=== PATIENT | male | born 1970 | race Caucasian/White ===

== ENCOUNTER 2018-01-13 20:18 | Emergency (ER) | payer OTHER ==
[2018-01-13 20:36] VITALS: BP 151/96
[2018-01-13] MEDS ORDERED: Lidocaine 1%* 5 ML VIAL INJ ONE (20:53)
[2018-01-13] MEDS ORDERED: Clindamycin CAP* 150 MG PO ONE ×2 (21:12→21:13)
--- NOTE | 2018-01-13 21:15 | UC ---
Skin Complaint HPI - HPI Summary HPI Summary: Patient to the urgent care today with chief complaint history of MRSA. Has abscess on his left thigh which is painful. No streaking no fevers. Very tender to touch - History of Current Complaint Chief Complaint: UCSkin Time Seen by Provider: 01/13/18 20:44 Stated Complaint: LEFT LEG SKIN COMPLAINT Hx Obtained From: Patient Onset/Duration: Sudden Onset - Mom, Lasting Days - 4 Timing: Constant Pain Intensity: 8 Pain Scale Used: 0-10 Numeric Location: Discrete - anterior left thigh Character: Pain, Redness, Raised Aggravating Factor(s): Nothing Associated Signs & Symptoms: Positive: Tenderness - Allergy/Home Medications Allergies/Adverse Reactions: Allergies Allergy/AdvReac Type Severity Reaction Status Date / Time No Known Allergies Allergy Verified 01/13/18 20:29 Review of Systems Constitutional: Negative Skin: Other - abscess left anterior thigh 10cm diameter erythema, 5 mm tender raised soft center Eyes: Negative ENT: Negative Respiratory: Negative Cardiovascular: Negative Gastrointestinal: Negative Genitourinary: Negative Motor: Negative Neurovascular: Negative Musculoskeletal: Negative Neurological: Negative Psychological: Negative Is Patient Immunocompromised?: No All Other Systems Reviewed And Are Negative: Yes PMH/Surg Hx/FS Hx/Imm Hx Previously Healthy: Yes - MRSA - Surgical History Surgical History: None - Family History Known Family History: Positive: Hypertension - Social History Occupation: Employed Full-time Lives: With Family Alcohol Use: Occasionally Substance Use Type: None Smoking Status (MU): Never Smoked Tobacco Physical Exam Triage Information Reviewed: Yes Appearance: Well-Appearing, No Pain Distress, Well-Nourished Vital Signs: Initial Vital Signs Temp 98.7 F 01/13/18 20:30 Pulse 79 01/13/18 20:30 Resp 16 01/13/18 20:30 BP 151/96 01/13/18 20:30 Pulse Ox 99 01/13/18 20:30 Vital Signs Reviewed: Yes Eye Exam: Normal Eyes: Positive: Conjunctiva Clear ENT Exam: Normal ENT: Positive: Normal ENT inspection, Hearing grossly normal. Negative: Trismus , Muffled voice, Hoarse voice Dental Exam: Normal Neck exam: Normal Neck: Positive: Supple, Nontender Respiratory Exam: Normal Respiratory: Positive: Chest non-tender, Normal breath sounds, No respiratory distress, No accessory muscle use Cardiovascular Exam: Normal Cardiovascular: Positive: RRR, Pulses Normal, Brisk Capillary Refill Musculoskeletal Exam: Normal Musculoskeletal: Positive: Strength Intact, ROM Intact, No Edema Neurological Exam: Normal Neurological: Positive: Alert, Muscle Tone Normal Psychological Exam: Normal Skin Exam: Other Skin: Positive: Other - abscess as described in ROS Course/Dx - Course Course Of Treatment: wound culture sent to lab---encouraged patient to elevate and use heat packes q 2-3 hours clindamycin ordered---follow with pcp - Diagnoses Provider Diagnoses: I&D abscess left anterior thigh Procedures - Incision and Drainage Left Anterior Thigh Anesthesia: Local, Lidocaine Instrument(s): Scalpel Packing: Other - none Discharge - Sign-Out/Discharge Documenting (check all that apply): Patient Departure - Discharge Plan Condition: Stable Disposition: HOME Prescriptions: Clindamycin Cap(NF) [Clindamycin Cap 300 mg Cap(NF)] 300 mg PO Q6H #28 cap Patient Education Materials: MRSA (Methicillin-Resistant Staphylococcus Aureus ) (ED), Hypertension (ED), Abscess Incision and Drainage (DC), Warm Compress or Soak (ED) Referrals: Jez Vicente MD [Primary Care Provider] - 1 Week - Billing Disposition and Condition Condition: STABLE Disposition: Home
--- NOTE | 2018-01-16 07:11 | UC ---
- Progress Note Progress Note: reviewed results of culture staph aureus. already on clindamycin continue current antibiotic Discharge - Sign-Out/Discharge Documenting (check all that apply): Post-Discharge Follow Up - continue current medications - Discharge Plan Condition: Stable Disposition: HOME Prescriptions: Clindamycin Cap(NF) [Clindamycin Cap 300 mg Cap(NF)] 300 mg PO Q6H #28 cap Patient Education Materials: MRSA (Methicillin-Resistant Staphylococcus Aureus ) (ED), Hypertension (ED), Abscess Incision and Drainage (DC), Warm Compress or Soak (ED) Referrals: Jez Vicente MD [Primary Care Provider] - 1 Week - Billing Disposition and Condition Condition: STABLE Disposition: Home
== END 2018-01-13 21:26 | disposition home or self-care (01) ==
LOC: UCCORT 20:18
DX: L02.416 Cutaneous abscess of left lower limb (principal); B95.61 Methicillin susceptible Staphylococcus aureus infection as the cause of diseases classified elsewhere; Z86.14 Personal history of Methicillin resistant Staphylococcus aureus infection; Z82.49 Family history of ischemic heart disease and other diseases of the circulatory system
CPT/HCPCS: 10060; 87070; 87077; 87186; 87205; 87640; 87641; 99212; G0463